=== PATIENT | male | born 1960 | race Caucasian/White ===

== ENCOUNTER 2018-07-04 07:58 | Outpatient (CLI) | payer BC ==
--- NOTE | 2018-07-04 09:14 | CT ---
LOW DOSE SCREENING CHEST CT: 07/04/2018 HISTORY: Nicotine dependence, 30-year history of smoking. COMPARISON: None. TECHNIQUE: Axial low-dose CT examination of the chest without contrast, using institutional protocol. Coronal a nd sagittal reformatted imaging obtained. FINDINGS: A small sliding type hiatal hernia is noted. There are two small hypodensities within the right lobe of the liver, [id number] on this examination, measuring up to 1.1 cm. Statistically, these likely represent small cysts. Evaluation of the viscera and vascular structures and for lymphadenopathy is limited on noncontrast e nhanced imaging. No pleural, pericardial, or mediastinal fluid. Scattered punctate foci of coronary arterial calcification noted in the region of the LAD and circumflex arteries. No pneumothorax. LEFT UPPER LOBE: No discrete pulmonary parenchymal mass lesion or nodule noted. No endobronchial le roseann is evident. LEFT LOWER LOBE: No discrete pulmonary parenchymal mass lesion or nodule noted. RIGHT UPPER LOBE: No discrete pulmonary parenchymal mass lesion or nodule noted. RIGHT MIDDLE LOBE: No discrete pulmonary parenchymal mass lesion or nodule. RIGHT LOWER LOBE: No discrete pulmonary parenchymal mass lesion or nodule. Review of the osseous structures demonstrates multilevel mild disk space narrowing and osteophyte for mation within the mid/lower thoracic spine. There is no worrisome lytic or blastic bone lesion. IMPRESSION: 1. Lung-RADS category 1-Negative. Continue annual screening with low dose chest CT in 12 months. 2. Lung-RADS category S. Small hiatal hernia. Coronary arterial calcification. POS: [facility]
== END 2018-07-04 07:59 | disposition home or self-care (01) ==
LOC: CT 07:58
PROVIDERS: ATTEND Family Medicine
DX: F17.210 Nicotine dependence, cigarettes, uncomplicated (principal); K44.9 Diaphragmatic hernia without obstruction or gangrene; I25.10 Atherosclerotic heart disease of native coronary artery without angina pectoris
CPT/HCPCS: G0297

== ENCOUNTER 2021-04-10 18:52 | Inpatient (IN) | payer BC ==
[~2021-04-10 18:52] MED LIST: Iopamidol-370 76% 500 ML 1 ML ONE
[2021-04-10] MEDS ORDERED: Aspirin Chewable 81 MG TAB ONE (19:09)
[2021-04-10] MEDS ORDERED: Azithromycin 500 MG VIAL ONE (19:09)
[2021-04-10] MEDS ORDERED: Dexamethasone 4 mg/ml Vial ONE (19:09)
[2021-04-10] MEDS ORDERED: cefTRIAXone\\ROCEPHIN 2 GM VIAL ONE (19:09)
[2021-04-10 19:46] LABS: #Lymphocytes 1.4 thou/uL (1.20-3.40); #Monocytes 0.6 thou/uL (0.11-0.59); #Neutrophils 4.4 thou/uL (1.40-6.50); %Basophils 0.3 % (0.0-1.0); %Eosinophils 0.1 % (0.0-10.0); %Lymphocytes 21.6 % (21.0-51.0); %Monocytes 8.7 % (0.0-10.0); %Neutrophils 69.3 % (42.0-75.0); Hemoglobin 16.1 g/dL (14.0-18.0); Mean Corpuscular Hemoglobin 33.7 pg (27.0-31.0); Mean Corpuscular Volume 96.4 fL (78.0-98.0); RBC Distribution Width 12.4 % (11.5-14.5); Red Blood Cell (RBC) Count 4.78 mill/uL (4.70-6.10); White Blood Cell (WBC) Count 6.1 thou/uL (4.8-10.8)
[2021-04-10 20:00] LABS: Large Platelets SLIGHT; MDiff Complete? YES; Mean Platelet Volume 9.3 fL (7.4-10.4); Platelet Count 140 thou/uL (130-400); Platelet Morphology Comment Appears Adequate; RBC Morphology Normal
[2021-04-10 20:02] LABS: ALT (SGPT) 63 U/L (8-55); AST (SGOT) 105 U/L (5-34); Albumin 4.1 g/dL (3.4-4.8); Alkaline Phosphatase 61 U/L (40-110); Anion Gap 17 mmol/L (10-20); BUN (Urea Nitrogen) 22 mg/dL (8.4-25.7); Bilirubin, Total 0.8 mg/dL (0.2-1.2); CK (CPK) 561 U/L (30-200); Calc. Creatinine Clearance 0 mL/min (70-130); Calcium 8.8 mg/dL (7.8-10.44); Carbon Dioxide 23 mmol/L (23-31); Chloride 98 mmol/L (98-107); Globulin 3.8 g/dL (2.4-3.5); Glucose 105 mg/dL (80-115); Lipase 299 U/L (8-78); Potassium 3.9 mmol/L (3.5-5.1); Protein, Total 7.9 g/dL (5.8-8.1); Sodium 134 mmol/L (136-145)
[2021-04-10 20:25] LABS: CKMB 0.7 ng/mL (0-6.6)
[2021-04-10 20:39] LABS: SARS-CoV-2 NAA Rapid Test DETECTED (NotDetected)
[2021-04-10] MEDS ORDERED: Enoxaparin Sodium 80 MG/0.8 ML SYRINGE ONE (20:50)
[2021-04-10] MEDS ORDERED: Ondansetron ODT 4 MG TAB PO PRN (21:15)
[2021-04-10] MEDS ORDERED: Ondansetron PF 4 MG/2 ML Vial IVP PRN (21:15)
[2021-04-10] MEDS ORDERED: Acetaminophen 325 MG TAB PO PRN (21:15)
[2021-04-10] MEDS ORDERED: Pharmacy to Dose REMDESIVIR IVPB PRN (21:21)
[2021-04-10] MEDS ORDERED: Albuterol 200 PUFF (6.7GM INHALER) INH PRN (22:34)
[2021-04-10 23:16] VITALS: BMI 27.2
[2021-04-11 01:36] LABS: Troponin I 0.025 ng/mL (< 0.028)
[2021-04-11 06:06] LABS: Band 5 % (5-11); Hemoglobin 14.8 g/dL (14.0-18.0); Lymphocytes 15 % (21-51); MDiff Complete? YES; Mean Corpuscular HGB CONC 33.5 g/dL (32.0-36.0); Mean Corpuscular Hemoglobin 32.8 pg (27.0-31.0); Mean Corpuscular Volume 97.9 fL (78.0-98.0); Monocytes 7 % (0-10); Neutrophil 73 % (42-75); Platelet Count 139 thou/uL (130-400); Platelet Morphology Comment Appears Adequate; RBC Distribution Width 12.5 % (11.5-14.5); RBC Morphology Normal; Red Blood Cell (RBC) Count 4.51 mill/uL (4.70-6.10); White Blood Cell (WBC) Count 4.3 thou/uL (4.8-10.8)
[2021-04-11 06:20] LABS: ALT (SGPT) 59 U/L (8-55); AST (SGOT) 90 U/L (5-34); Albumin 3.6 g/dL (3.4-4.8); Alkaline Phosphatase 49 U/L (40-110); Anion Gap 12 mmol/L (10-20); BUN (Urea Nitrogen) 22 mg/dL (8.4-25.7); Bilirubin, Total 0.5 mg/dL (0.2-1.2); Calc. Creatinine Clearance 84 mL/min (70-130); Calcium 8.4 mg/dL (7.8-10.44); Carbon Dioxide 24 mmol/L (23-31); Chloride 102 mmol/L (98-107); Globulin 3.5 g/dL (2.4-3.5); Glucose 140 mg/dL (80-115); Potassium 4.4 mmol/L (3.5-5.1); Protein, Total 7.1 g/dL (5.8-8.1); Sodium 134 mmol/L (136-145)
[2021-04-11] MEDS: Enoxaparin Sodium 40 MG/0.4 ML SYRINGE SC SCH (07:44)
[2021-04-11] MEDS: Dexamethasone 4 MG TAB PO SCH (07:45)
[2021-04-11] MEDS ORDERED: REMDESIVIR 200 MG in Sodium Chloride 0.9% 250 ML 210 ML IV SCH (10:00)
[2021-04-12] MEDS: Melatonin 3 MG TAB PO PRN ×2 (01:03→19:34)
[2021-04-12] MEDS: Dexamethasone 4 MG TAB PO SCH (08:58)
[2021-04-12] MEDS: Enoxaparin Sodium 40 MG/0.4 ML SYRINGE SC SCH (08:59)
[2021-04-12] MEDS: REMDESIVIR 100 MG in Sodium Chloride 0.9% 250 ML 230 ML IV SCH (09:00)
[2021-04-13 07:51] LABS: ALT (SGPT) 47 U/L (8-55); AST (SGOT) 54 U/L (5-34); Albumin 3.4 g/dL (3.4-4.8); Alkaline Phosphatase 52 U/L (40-110); Anion Gap 13 mmol/L (10-20); BUN (Urea Nitrogen) 21 mg/dL (8.4-25.7); Bilirubin, Total 0.6 mg/dL (0.2-1.2); Calc. Creatinine Clearance 109 mL/min (70-130); Calcium 8.2 mg/dL (7.8-10.44); Carbon Dioxide 22 mmol/L (23-31); Chloride 105 mmol/L (98-107); Globulin 3.2 g/dL (2.4-3.5); Glucose 128 mg/dL (80-115); Potassium 3.9 mmol/L (3.5-5.1); Protein, Total 6.6 g/dL (5.8-8.1); Sodium 136 mmol/L (136-145)
[2021-04-13] MEDS ORDERED: FLU VACC QS2021-22(6MOS UP)/PF 60 MCG/0.5 ML SYRINGE IM ONE (09:00)
[2021-04-13] MEDS: Enoxaparin Sodium 40 MG/0.4 ML SYRINGE SC SCH (09:27)
[2021-04-13] MEDS: Dexamethasone 4 MG TAB PO SCH (09:28)
[2021-04-13 11:18] LABS: Prothrombin Time 13.2 sec (12.0-14.7)
[2021-04-13] MEDS: REMDESIVIR 100 MG in Sodium Chloride 0.9% 250 ML 230 ML IV SCH (12:42)
[2021-04-14] MEDS: Enoxaparin Sodium 40 MG/0.4 ML SYRINGE SC SCH (10:08)
[2021-04-14] MEDS: Dexamethasone 4 MG TAB PO SCH (10:08)
[2021-04-14] MEDS: REMDESIVIR 100 MG in Sodium Chloride 0.9% 250 ML 230 ML IV SCH (10:10)
[2021-04-14 12:00] LABS: Magnesium 2.6 mg/dL (1.6-2.6); Phosphorus 2.3 mg/dL (2.3-4.7)
[2021-04-14] MEDS ORDERED: Benzonatate 100 MG CAP PO SCH (20:00)
[2021-04-14] MEDS: Benzonatate 100 MG CAP PO SCH (20:09)
[2021-04-15] MEDS: Enoxaparin Sodium 40 MG/0.4 ML SYRINGE SC SCH (09:21)
[2021-04-15] MEDS: Benzonatate 100 MG CAP PO SCH (09:22)
[2021-04-15] MEDS: Dexamethasone 4 MG TAB PO SCH (09:22)
[2021-04-15 10:40] LABS: #Basophils 0.1 thou/uL (0.0-0.2); #Neutrophils 7.8 thou/uL (1.40-6.50); %Basophils 0.5 % (0.0-1.0); %Eosinophils 0.1 % (0.0-10.0); %Monocytes 9.6 % (0.0-10.0); %Neutrophils 71.8 % (42.0-75.0); Hemoglobin 14.2 g/dL (14.0-18.0); Mean Corpuscular HGB CONC 34.3 g/dL (32.0-36.0); Mean Corpuscular Hemoglobin 33.6 pg (27.0-31.0); Mean Corpuscular Volume 97.9 fL (78.0-98.0); Mean Platelet Volume 9.1 fL (7.4-10.4); Platelet Count 265 thou/uL (130-400); RBC Distribution Width 12.2 % (11.5-14.5); Red Blood Cell (RBC) Count 4.21 mill/uL (4.70-6.10); White Blood Cell (WBC) Count 10.8 thou/uL (4.8-10.8)
[2021-04-15 10:52] LABS: Prothrombin Time 13.4 sec (12.0-14.7)
[2021-04-15 10:55] LABS: ALT (SGPT) 66 U/L (8-55); AST (SGOT) 67 U/L (5-34); Albumin 3.4 g/dL (3.4-4.8); Alkaline Phosphatase 56 U/L (40-110); Anion Gap 11 mmol/L (10-20); BUN (Urea Nitrogen) 19 mg/dL (8.4-25.7); Bilirubin, Total 0.8 mg/dL (0.2-1.2); Calc. Creatinine Clearance 118 mL/min (70-130); Calcium 8.6 mg/dL (7.8-10.44); Carbon Dioxide 24 mmol/L (23-31); Chloride 105 mmol/L (98-107); Globulin 3.2 g/dL (2.4-3.5); Glucose 102 mg/dL (80-115); Potassium 3.8 mmol/L (3.5-5.1); Protein, Total 6.6 g/dL (5.8-8.1); Sodium 136 mmol/L (136-145)
[2021-04-15] MEDS: REMDESIVIR 100 MG in Sodium Chloride 0.9% 250 ML 230 ML IV SCH (11:00)
[2021-04-15 12:12] VITALS: BP 124/65; TEMP 98
== END 2021-04-15 14:20 | disposition home or self-care (01) | DRG 177 ==
LOC: ERS 18:52 → 2SW 20:53
PROVIDERS: ADMIT Student in an Organized Health Care Education/Training Program; ATTEND Student in an Organized Health Care Education/Training Program
PROC: XW033E5 Introduction of Remdesivir Anti-infective into Peripheral Vein, Percutaneous Approach, New Technology Group 5 (ICD-10-PCS; principal; 2021-04-11)
PROC: 8E0ZXY6 Isolation (ICD-10-PCS; 2021-04-11)
DX: U07.1 COVID-19 (principal); J12.82 Pneumonia due to coronavirus disease 2019; J96.01 Acute respiratory failure with hypoxia; M62.82 Rhabdomyolysis; N17.9 Acute kidney failure, unspecified; I47.1 Supraventricular tachycardia; R74.01 Elevation of levels of liver transaminase levels; R77.8 Other specified abnormalities of plasma proteins; E86.0 Dehydration; N18.9 Chronic kidney disease, unspecified; I08.3 Combined rheumatic disorders of mitral, aortic and tricuspid valves; I49.3 Ventricular premature depolarization; R00.1 Bradycardia, unspecified; Z28.21 Immunization not carried out because of patient refusal; Z79.899 Other long term (current) drug therapy
CPT/HCPCS: 36415; 71045; 71275; 80053; 82550; 82553; 83690; 83735; 83880; 84100; 84484; 85007; 85025; 85027; 85379; 85610; 93005; 93010; 93306; 96365; 96372; 96375; J0456; J0696; J1100; J1650; J7050; J8540; Q0162; Q9967; U0002